=== PATIENT | female | born 1995 | race Caucasian/White ===

== ENCOUNTER 2022-01-26 15:53 | Outpatient (CLI) | payer OTHER, SELFPAY ==
[2022-01-26 19:44] LABS: Total Protein Urine < 5 mg/dL
[2022-01-26 19:47] LABS: Alanine Aminotransferase* 15 U/L (4-35); Aspartate Amino Transferase* 17 U/L (12-35); Blood Urea Nitrogen* 8 mg/dL (5-24); Creatinine* 0.4 mg/dL (0.5-1.5); Estimated Glomerular Filt Rate 142 ml/min; Uric Acid* 2.7 mg/dL (2.2-8.4)
[2022-01-26 19:59] LABS: Creatinine Urine 135.4 mg/dL
[2022-01-26 20:19] LABS: Hepatitis B Surface Antigen* Negative (Negative)
[2022-01-26 20:23] LABS: Ferritin* 3.5 ng/mL (6.24-137.0)
[2022-01-26 20:32] LABS: HIV 1/2/P24 Combo Screen* Negative (Negative)
[2022-01-26 20:36] LABS: Hepatitis C Virus Antibody* Negative (Negative)
[2022-01-26 21:29] LABS: Iron* 14 ug/dL (37-170)
[2022-01-26 21:29] LABS: Chlamydia DNA Amplified* NOT DETECTED (No Detected); GC DNA Amplified* NOT DETECTED (No Detected)
[2022-01-26 21:39] LABS: Percent Iron Saturation 3 % (20-50); Total Iron Binding Capacity 472 ug/dL (265-497)
[2022-01-29 02:59] LABS: Rapid Plasma Reagin (RPR) Non Reactive (Non Reactive)
[2022-01-29 05:59] LABS: Varicella-Zoster Virus Ab, IgG 48.4 IV
[2022-02-01 14:22] LABS: Rubella Antibody IgG 14.9 IU/mL
== END 2022-01-26 15:54 | disposition home or self-care (01) ==
PROVIDERS: Visit Provider Physician Assistant
DX: O30.031 Twin pregnancy, monochorionic/diamniotic, first trimester (principal); Z3A.01 Less than 8 weeks gestation of pregnancy
CPT/HCPCS: 76817; 82565; 82570; 82728; 83540; 83550; 84156; 84450; 84460; 84520; 84550; 86592; 86703; 86762; 86787; 86803; 86850; 86900; 86901; 87086; 87340; 87491; 87591

== ENCOUNTER 2022-06-22 08:29 | Outpatient (CLI) | payer OTHER, SELFPAY | END 2022-06-22 08:30 | disposition home or self-care (01) | PROVIDERS: Visit Provider Obstetrics & Gynecology | DX: O30.033 Twin pregnancy, monochorionic/diamniotic, third trimester (principal); O13.3 Gestational [pregnancy-induced] hypertension without significant proteinuria, third trimester; Z3A.28 28 weeks gestation of pregnancy | CPT/HCPCS: 82565; 82570; 84156; 84450; 84460; 84520; 86592 ==

== ENCOUNTER 2022-06-24 16:05 | Outpatient (CLI) | payer OTHER, SELFPAY | END 2022-06-24 16:06 | disposition home or self-care (01) | LOC: NFLDREF 06-29 09:02 | PROVIDERS: Visit Provider Obstetrics & Gynecology | DX: Z87.59 Personal history of other complications of pregnancy, childbirth and the puerperium (principal) | CPT/HCPCS: 82570; 84156 ==

== ENCOUNTER 2022-08-09 08:11 | Outpatient (CLI) | payer OTHER, SELFPAY ==
--- NOTE | 2022-08-09 08:15 | CRLHL7_ITS ---
For Patients: As a result of the Century Cures Act, medical imaging exams and procedure reports are released immediately into your electronic medical record. You may view this report before your referring provider. If you have questions, please contact your health care provider. INDICATION: MONO-DI TWINS, HYPERTENSION, BPP COMPARISON: 08.03.22 TECHNIQUE: Real time finnegan scale imaging of the twins was performed. Without non-stress testing. FINDINGS: Sonographic imaging demonstrates a twin living intrauterine gestation. TWIN A: Fetus demonstrates a regular cardiac rate of 139 beats per minute. Fetus has a yazan breech maternal left position. The amniotic fluid volume appears normal and there is a single deepest pocket measurement of 4.8 cm. The fetus was active and demonstrated normal breathing movements. There was normal flexion and extension of the trunk and extremities. TWIN B: Fetus demonstrates a regular cardiac rate of 129 beats per minute. Fetus has a transverse position, head maternal left. The amniotic fluid volume appears normal and there is a single deepest pocket measurement of 4.8 cm. The fetus was active and demonstrated normal breathing movements. There was normal flexion and extension of the trunk and extremities. IMPRESSION: Twin A: Normal biophysical profile score of 8 out of 8. Twin B: Normal biophysical profile score of 8 out of 8. Dictated by Ced Arevalo MD @ 08/09/2022 9:48:23 AM (Electronically Signed)
== END 2022-08-09 08:12 | disposition home or self-care (01) ==
PROVIDERS: Visit Provider Obstetrics & Gynecology
DX: O11.3 Pre-existing hypertension with pre-eclampsia, third trimester (principal); O30.033 Twin pregnancy, monochorionic/diamniotic, third trimester; Z3A.35 35 weeks gestation of pregnancy
CPT/HCPCS: 76819

== ENCOUNTER 2022-08-11 08:37 | Outpatient (CLI) | payer OTHER, SELFPAY ==
--- NOTE | 2022-08-11 08:45 | CRLHL7_ITS ---
For Patients: As a result of the Century Cures Act, medical imaging exams and procedure reports are released immediately into your electronic medical record. You may view this report before your referring provider. If you have questions, please contact your health care provider. INDICATION: MONO-DI TWINS, HYPERTENSION COMPARISON: 08/09/2022 TECHNIQUE: Real time finnegan scale imaging of the twin was performed. Without non-stress testing. FINDINGS: Sonographic imaging demonstrates a twin living intrauterine gestation. TWIN A: Fetus demonstrates a regular cardiac rate of 152 beats per minute. Fetus has a yazan breech left maternal position. The amniotic fluid volume appears normal and there is a single deepest pocket measurement of 3.3 cm. The fetus was active and demonstrated normal breathing movements. There was normal flexion and extension of the trunk and extremities. TWIN B: Fetus demonstrates a regular cardiac rate of 146 beats per minute. Fetus has a yazan breech, maternal right position. The amniotic fluid volume appears normal and there is a single deepest pocket measurement of 6.6 cm. The fetus was active and demonstrated normal breathing movements. There was normal flexion and extension of the trunk and extremities. IMPRESSION: TWIN A: Normal biophysical profile score of 8 out of 8. TWIN B: Normal biophysical profile score of 8 out of 8. Dictated by Ced Arevalo MD @ 08/11/2022 10:05:03 AM (Electronically Signed)
== END 2022-08-11 08:38 | disposition home or self-care (01) ==
PROVIDERS: Visit Provider Obstetrics & Gynecology
DX: O11.3 Pre-existing hypertension with pre-eclampsia, third trimester (principal); Z3A.35 35 weeks gestation of pregnancy
CPT/HCPCS: 76819; 82565; 84450; 84460; 84520; 84550

== ENCOUNTER 2022-08-17 08:02 | Outpatient (CLI) | payer OTHER, SELFPAY ==
--- NOTE | 2022-08-17 08:15 | CRLHL7_ITS ---
For Patients: As a result of the Century Cures Act, medical imaging exams and procedure reports are released immediately into your electronic medical record. You may view this report before your referring provider. If you have questions, please contact your health care provider. INDICATION: female. Hypertension. Monochorionic diamniotic twins. Evaluate well-being. TECHNIQUE: Transabdominal obstetrical ultrasound. COMPARISON : August 11, 2022. FINDINGS: Intrauterine living twin pregnancies. Twin A is in breech presentation. heart rate 142 beats per minute. Normal amniotic fluid. Single deepest pocket measurement 5.4 cm. Biophysical profile score 8/8 with 2 points given each for breathing, movement, tone, and amniotic fluid. Anterior placenta. Twin B is transversely oriented with the head toward the maternal left side. heart rate 147 beats per minute. Normal amniotic fluid. Single deepest pocket measurement 7.5 cm. Biophysical profile score 8/8 with 2 points given each for breathing, movement, tone, and amniotic fluid. Anterior placenta. IMPRESSION: Biophysical profile score 8/8 for each twin . Dictated by Tim Giron MD @ 08/17/2022 9:13:57 AM (Electronically Signed)
== END 2022-08-17 08:03 | disposition home or self-care (01) ==
PROVIDERS: Visit Provider Obstetrics & Gynecology
DX: O11.9 Pre-existing hypertension with pre-eclampsia, unspecified trimester (principal); O30.039 Twin pregnancy, monochorionic/diamniotic, unspecified trimester
CPT/HCPCS: 76819; 82565; 84450; 84460; 84520

== ENCOUNTER 2022-08-19 05:26 | Inpatient (IN) | payer OTHER, SELFPAY ==
[2022-08-19] VITALS (19 sets, daily range): BP systolic 108–138; BP diastolic 69–93; PULSE 59–93; RESP 14–18; TEMP 36.4–36.9; O2SAT 97–98; BMI 28.0
[2022-08-19 06:12] LABS: Basophils Absolute Auto 0.02 K/uL (0.00-0.30); Basophils Percent Auto 0.2 % (0.0-3.0); Eosinophils Absolute Auto 0.07 K/uL (0.00-0.50); Eosinophils Percent Auto 0.7 % (0.0-7.0); Hematocrit 39.8 % (33.0-51.0); Hemoglobin* 13.1 gm/dL (12.0-16.0); Immature Granulocytes Abs Auto 0.15 K/uL (0.00-0.30); Immature Granulocytes Pct Auto 1.6 %; Lymphocytes Percent Auto 17.2 % (20-44); Mean Corpuscular HGB Conc 33 gm/dL (32-36); Mean Corpuscular Hemoglobin 28 pg (26-34); Mean Corpuscular Volume 84 fL (80-100); Monocytes Percent Auto 8.5 % (0.0-11.0); Neutrophils Absolute Auto 6.78 K/uL (1.7-7.0); Neutrophils Percent Auto 71.8 % (42.0-72.0); Platelet Count* 234 K/uL (140-440); RDW Coefficient of Variation % 19.5 % (11.5-15.5); Red Blood Count 4.74 m/uL (4.00-5.20); White Blood Count* 9.44 K/uL (4.50-11.00)
[2022-08-19] MEDS: LACTATED RINGERS 1000 ML 1,000 ML 125 ML IV (06:13)
[2022-08-19 06:17] LABS: Slide Review Reflex No
--- NOTE | 2022-08-19 07:17 | P.LDBA_ITS ---
Subjective History of Present Illness Time Seen by Provider: 07:17 Date Seen: 08/19/22 Narrative: Patient is being admitted to Labor and Delivery for a scheduled primary low- transverse for mono/di twins, both not vertex, chronic hypertension with superimposed mild preeclampsia. She is a 27 year old at 36 weeks 5 days gestation. Her full history and physical was dictated by Dr. Sonya Galaviz on 08/03/2022. Please see this for details. 1. [place]/di twin gestation * Referral to [facility] to confirm chorionicity: mono/di gestation * Ultrasounds every 2 weeks starting at 16 weeks * Level 2 ultrasound at 18-20 weeks: 04/27/2022, normal, absent nasal bone x2 * echo at 22-24 weeks: normal * Serial growth ultrasounds * BPP twice weekly until delivery * 05/28/22: Normal growth. Normal amniotic fluid. Normal umbilical artery Dopplers. * 06/09/22: normal amniotic fluid for both. bladder is visualized for both. Umbilical artery Doppler studies are normal for both, middle cerebral artery Doppler normal for both * 06/25/22: Normal growth, normal fluid normal umbilical artery doppler, normal MCA doppler. BPPs reassuring. * 07/09/22: normal dopplers, normal fliud, bladders seen, BPPs reassuring * : Normal Dopplers, normal fluid, normal growth. BPP reassuring * 07/27/2022: Normal growth for both babies, Baby A breech, single deepest pocket of amniotic fluid 5.7 cm. Baby B vertex, single deepest pocket of amniotic fluid 7.3 cm. Normal umbilical artery Doppler flow studies for both twins, normal MCA Doppler for both twins. BPP is are reassuring. * 07/29/2022: Br/Br twins. Twin A: Mat L, BR, SDP 7.3cm, BPP 8/8. Twin B: mat R, BR, SDP 6.0cm, BPP 8/8. * 08/03/22: Twin A (maternal L): Sukhwinder breech, SDP 3.8, BPP 8/8. Twin B (maternal R): transverse, back up, SDP 7.7, BPP 8/8. * 08/17/22: Twin A: Breech, SDP 5.4 cm, BPP 8/8. Twin B: transverse, SDP 7.5 cm, BPP 8/8 2. Chronic hypertension with superimposed preeclampsia w/o severe features diagnosed at 28w1d. * History of preeclampsia with severe features by POLITICAL DIRECTOR symptoms, delivered at 35 weeks 5 days * Baseline pre E labs: Normal. Urine P/C: 0.00, no 24 hr urine protein. * 81 mg aspirin daily - stopped by 34 weeks. * Blood pressure in clinic 120/90 at 15 weeks. * 06/22/2022 preeclampsia labs: Hgb 10.0, plts 225, AST 27, ALT 20, BUN 5, Creat 0.4. Urine P/C 1.00, * 06/24/2022: 24hr urine protein 357mg. * 07/27/2022: Urine p/C 4.0. hgb 12.7, plts 217, BUN 3, Creat 0.4, AST 22, ALT 18. (Stop checking urine P/C: we know she has proteinuria c/w preeclampsia). * Delivery by 37 0/7weeks 3. Anemia (requred iron infusions in 1st ). * hgb 8.2 , iron 14L, ferrtin 3.5!: HGB:11.5 after iron infusions * IV iron infusions ordered, completed in the first trimester * NEEDS ANEMIA WORK UP PP, WOULD CONSIDER GI REFERRAL * Hematology referral ordered 02/25/22; patient plans to defer until * Anemia 06/22/22:IV iron infusions ordered again * Hb 12.7 on 08/02 4. Desires sterilization. Bilateral salpingectomy at time of 08/19/22. 5. Varicella nonimmune * Vaccination Flu shot: considering for next visit Covid: 1st shot, recommend 2nd Tdap:07/07/22 OB - Problem Based A/P Additional Plan (1) Chronic hypertension with superimposed preeclampsia: Status: Acute (2) S/P primary low transverse : Status: Acute (3) malpresentation, delivered, current hospitalization: Problem details: Twin A: Breech, Twin B: transverse. Status: Acute Plan 1. Consent form reviewed and signed by me today. Previously signed and reviewed by Dr. Sonya Galaviz. 2. Planning primary low-transverse delivery. 3. Preeclampsia labs (serum) continue to be normal. OB Exam Physical Exam Vital signs: Pulse BP 93 137/92 H 08/19/22 05:35 08/19/22 05:35 Narrative: GENERAL APPEARANCE: Pleasant, [race], well-groomed woman in no acute distress. VITAL SIGNS: as noted in nursing notes HEAD: Normocephalic, atraumatic. THYROID: no masses, nodularity, tenderness or enlargement. LUNGS: Clear to auscultation bilaterally without wheezes, rales or rhonchi. HEART: Regular rate and rhythm with normal S1 and S2. No gallop, rub or murmur. ABDOMEN: Gravid. Soft, nontender, nondistended, with normal bowels sounds throughout. HEART TONES: Both twins 130s and reactive PRESENTATION: Breech/transverse on ultrasound SVE: Deferred EXTREMITIES: No cyanosis, clubbing, or edema. No varicosities. NEUROLOGIC: Normal gait and balance. Normal deep tendon reflexes at bilateral patella 2+/2, equal without clonus. PSYCHIATRIC: alert and oriented x3. Normal speech pattern, eye contact and affect. SKIN: Warm, dry, and well perfused. Good turgor. No lesions, nodules or rashes.
--- NOTE | 2022-08-19 07:17 | W.PM.LDBA ---
Subjective History of Present Illness Time Seen by Provider: 07:17 Date Seen: 08/19/22 Narrative: Patient is being admitted to Labor and Delivery for a scheduled primary low-transverse for mono/di twins, both not vertex, chronic hypertension with superimposed mild preeclampsia. She is a 27 year old at 36 weeks 5 days gestation. Her full history and physical was dictated by Dr. Sonya Galaviz on 08/03/2022. Please see this for details. 1. [place]/di twin gestation Referral to [facility] to confirm chorionicity: mono/di gestation Ultrasounds every 2 weeks starting at 16 weeks Level 2 ultrasound at 18-20 weeks: 04/27/2022, normal, absent nasal bone x2 echo at 22-24 weeks: normal Serial growth ultrasounds BPP twice weekly until delivery 05/28/22: Normal growth. Normal amniotic fluid. Normal umbilical artery Dopplers. 06/09/22: normal amniotic fluid for both. bladder is visualized for both. Umbilical artery Doppler studies are normal for both, middle cerebral artery Doppler normal for both 06/25/22: Normal growth, normal fluid normal umbilical artery doppler, normal MCA doppler. BPPs reassuring. 07/09/22: normal dopplers, normal fliud, bladders seen, BPPs reassuring : Normal Dopplers, normal fluid, normal growth. BPP reassuring 07/27/2022: Normal growth for both babies, Baby A breech, single deepest pocket of amniotic fluid 5.7 cm. Baby B vertex, single deepest pocket of amniotic fluid 7.3 cm. Normal umbilical artery Doppler flow studies for both twins, normal MCA Doppler for both twins. BPP is are reassuring. 07/29/2022: Br/Br twins. Twin A: Mat L, BR, SDP 7.3cm, BPP 8/8. Twin B: mat R, BR, SDP 6.0cm, BPP 8/8. 08/03/22: Twin A (maternal L): Sukhwinder breech, SDP 3.8, BPP 8/8. Twin B (maternal R): transverse, back up, SDP 7.7, BPP 8/8. 08/17/22: Twin A: Breech, SDP 5.4 cm, BPP 8/8. Twin B: transverse, SDP 7.5 cm, BPP 8/8 2. Chronic hypertension with superimposed preeclampsia w/o severe features diagnosed at 28w1d. History of preeclampsia with severe features by ELECTRONICS MANUFACTURER symptoms, delivered at 35 weeks 5 days Baseline pre E labs: Normal. Urine P/C: 0.00, no 24 hr urine protein. 81 mg aspirin daily - stopped by 34 weeks. Blood pressure in clinic 120/90 at 15 weeks. 06/22/2022 preeclampsia labs: Hgb 10.0, plts 225, AST 27, ALT 20, BUN 5, Creat 0.4. Urine P/C 1.00, 06/24/2022: 24hr urine protein 357mg. 07/27/2022: Urine p/C 4.0. hgb 12.7, plts 217, BUN 3, Creat 0.4, AST 22, ALT 18. (Stop checking urine P/C: we know she has proteinuria c/w preeclampsia). Delivery by 37 0/7weeks 3. Anemia (requred iron infusions in 1st ). hgb 8.2 , iron 14L, ferrtin 3.5!: HGB:11.5 after iron infusions IV iron infusions ordered, completed in the first trimester NEEDS ANEMIA WORK UP PP, WOULD CONSIDER GI REFERRAL Hematology referral ordered 02/25/22; patient plans to defer until Anemia 06/22/22:IV iron infusions ordered again Hb 12.7 on 08/02 4. Desires sterilization. Bilateral salpingectomy at time of 08/19/22. 5. Varicella nonimmune Vaccination Flu shot: considering for next visit Covid: 1st shot, recommend 2nd Tdap:07/07/22 OB - Problem Based A/P Additional Plan (1) Chronic hypertension with superimposed preeclampsia: Status: Acute (2) S/P primary low transverse : Status: Acute (3) malpresentation, delivered, current hospitalization: Problem details: Twin A: Breech, Twin B: transverse. Status: Acute Plan 1. Consent form reviewed and signed by me today. Previously signed and reviewed by Dr. Sonya Galaviz. 2. Planning primary low-transverse delivery. 3. Preeclampsia labs (serum) continue to be normal. OB Exam Physical Exam Vital signs: Pulse BP 93 137/92 H 08/19/22 05:35 08/19/22 05:35 Narrative: GENERAL APPEARANCE: Pleasant, [race], well-groomed woman in no acute distress. VITAL SIGNS: as noted in nursing notes HEAD: Normocephalic, atraumatic. THYROID: no masses, nodularity, tenderness or enlargement. LUNGS: Clear to auscultation bilaterally without wheezes, rales or rhonchi. HEART: Regular rate and rhythm with normal S1 and S2. No gallop, rub or murmur. ABDOMEN: Gravid. Soft, nontender, nondistended, with normal bowels sounds throughout. HEART TONES: Both twins 130s and reactive PRESENTATION: Breech/transverse on ultrasound SVE: Deferred EXTREMITIES: No cyanosis, clubbing, or edema. No varicosities. NEUROLOGIC: Normal gait and balance. Normal deep tendon reflexes at bilateral patella 2+/2, equal without clonus. PSYCHIATRIC: alert and oriented x3. Normal speech pattern, eye contact and affect. SKIN: Warm, dry, and well perfused. Good turgor. No lesions, nodules or rashes.
--- NOTE | 2022-08-19 07:23 | P.PCN_ITS ---
Procedure Note Time Seen by Provider: : Date Seen: 08/19/22 Date of procedure: 08/19/22 Will [facility] bill your pro fee for this procedure?: Yes Procedure: Preoperative diagnosis: Diana is a 27-year-old 2 para 1001 at 36 and 5/7 weeks * Monochorionic/diamniotic twins * Chronic hypertension with superimposed preeclampsia without severe features * Malpresentation of twins: Twin a breech/twin B transverse * Undesired fertility Postoperative diagnosis: Same Procedure: Primary low-transverse section, bilateral salpingectomy Anesthesia: Spinal Surgeon: Ceci Araiza MD Marketing Account Manager: BECKY Nogueira Quantitative blood loss: 504 mL IV Fluid: 2000 mL UOP: 400 mL clear urine at the end of the procedure Specimen: 1. Placenta. 2. Bilateral fallopian tubes Drain(s): Urban to gravity Findings: Twin A: Female infant was delivered from the yazan breech position at 8:02 am. Apgars were 7 at 1 min and 9 at 5 min respectively. weight: 5 lb 12 oz., 2610 g Nuchal cord(s): No. Twin B: Female infant was delivered from the footling breech position at 8:04 am. Apgars were 7 at 1 min and 9 at 5 min., respectively. Infant weight: 5 lb 12 oz. 2610 g Nuchal cord(s): No. The placenta was delivered spontaneously and complete at 8:06 am. Amniotic fluid: Clear.. Normal uterus, fallopian tubes and ovaries were noted. Other findings: None Procedure: Diana was taken to the OR where spinal anesthetic was found be adequate. A Urban catheter was placed. The patient was then placed in the dorsal supine position with a leftward tilt. She was then prepped and draped in a normal sterile manner. A Pfannenstiel skin incision was made and carried through sharply to the underlying layer of fascia. Fascia was incised in the midline and this incision carried laterally with Romero scissors. The superior aspect of fascial incision was grasped with Charissa clamps, tented up, and the rectus muscles dissected off with a combination of blunt and sharp dissection. The inferior aspect of the fascial incision was not dissected off the rectus muscles. The rectus muscles were in the midline. The peritoneum was entered bluntly. This opening was extended bluntly. An Ming-O self-retaining retractor was placed. A bladder flap was not created. Uterus was incised in a low transverse manner in the midline. This incision carried laterally with blunt pressure on the inferior and superior aspects of the uterine incision. The amniotic sac was ruptured. The amniotic sac of Twin B was ruptured and the 's breech, body and head were delivered atraumatically. The infant was shown to the patient and her support person and then handed to waiting pediatric and nursing staff. The position of Twin B was noted, the amniotic sac was ruptured and the infant's feet were grasped and the was delivered from footling breech presentation.. The infant was shown to the support person and the patient and handed to waiting pediatric and nursing staff. The placenta was delivered spontaneously. The uterus was cleared of clots and debris. The uterine incision was re-approximated with the uterus in vivo. The 1st layer using 0-Vicryl in a running, locked manner. The 2nd layer using 0-Monocryl in a running, vertical, imbricating layer. Additional sutures needed for hemostasis: No. Excellent hemostasis was verified. Attention was turned to performing the bilateral salpingectomy. The patient verbally confirmed that she desired bilateral salpingectomy for undesired fertility. The LigaSure exact dissecting forceps was used to remove the fallopian tubes. The uterus was exteriorized. The left fallopian tube was grasped with 2 Troy clamps. The tube was removed in sequential pedicles starting at the cornual moving toward the fimbria. The tube was removed from the broad ligament at the fimbriated and. The mesosalpinx was noted to be hemostatic. The right fallopian tube was grasped with Troy clamps and the tube removed in sequential pedicle starting at the fimbriated end and the tube removed from the broad ligament and uterus at the cornua. Hemostasis of the pedicles was obtained using bipolar cautery. The uterus was returned to the pelvis. The uterine incision which was noted to be hemostatic after applying bipolar cautery. The Ming retractor was removed. The rectus muscles and peritoneum were not reapproximated. The rectus muscles were then closely inspected to verify hemostasis. Hemostasis was obtained with bipolar cautery. The fascia was then re-approximated using 0-Maxon loop in a running manner. The subcutaneous tissue was then irrigated with saline and hemostasis obtained with bipolar cautery. The subcutaneous tissue was re- approximated using 3-0 plain gut interrupted sutures. The skin was reapproximated using 4-0 Monocryl in a running subcuticular manner. Exofin skin adhesive and a Methaplex dressing were applied. The patient tolerated this procedure well. Sponge, lap and instrument counts were correct x2 active to the procedure. Patient was taken to the recovery area in stable condition. The patient received 2 g of IV Ancef prior to skin incision. 1 g IV TXA was given to the patient after the cord of Twin B was clamped. Pathology: specimen obtained, sent to pathology Condition: stable Disposition: floor
--- NOTE | 2022-08-19 08:13 | W.ANESCHARGE ---
Anesthesia Charges Start Date/Time Anesthesia Start Date: 08/19/22 Anesthesia Start Time: 07:19 Stop Date/Time Anesthesia Stop Date: 08/19/22 Anesthesia Stop Time: 08:56
--- NOTE | 2022-08-19 08:57 | P.NB_ITS ---
Nerve Block Nerve Block Time Seen by Provider: 07:45 Date Seen: 08/19/22 Type of block requested by surgeon for post-operative analgesia: TAP Side: bilateral Time out performed: Yes Verification of patient name: Yes Verification of date of : Yes Site marking: site marked Name of person performing procedure: Yadiel Continuous monitoring Was continuous monitoring of O2 sat, B/P, environmental monitoring specialist, recorded every 15 minutes?: Yes Procedure Checklist: sterile prep, needles and gloves Ultrasound guided. Images saved: Yes Medications given in 5ml increments after negative aspiration: Marcaine %: 0.25 mL: 30 Needle gauge: 20 and Exparel mL: 10 Patient tolerated procedure well: Yes Additional comments: Needle noted adjacent to nerve Block Charges Block Charge (with Pro Fee): TAP Bilateral Use of Ultrasound Machine for Block: Yes- US Guidance/pain block
--- NOTE | 2022-08-19 09:14 | W.ANESCHARGE ---
Anesthesia Charges Start Date/Time Anesthesia Start Date: 08/19/22 Anesthesia Start Time: 07:19 Stop Date/Time Anesthesia Stop Date: 08/19/22 Anesthesia Stop Time: 08:56
[2022-08-19 10:00] LABS: Blood Urea Nitrogen* 6 mg/dL (5-24)
[2022-08-19] MEDS: ACETAMINOPHEN 500 MG TABLET 1000 MG PO ×3 (11:00→23:49)
[2022-08-19] MEDS: KETOROLAC 30 MG/ML inj IVP ×2 (14:16→20:13)
[2022-08-20] MEDS: KETOROLAC 30 MG/ML inj IVP ×3 (02:40→14:54)
[2022-08-20 04:07] VITALS: BP 120/79; PULSE 77; RESP 16; TEMP 36.7; O2SAT 97
[2022-08-20 05:29] LABS: Hematocrit 33.3 % (33.0-51.0); Hemoglobin* 10.7 gm/dL (12.0-16.0); Mean Corpuscular HGB Conc 32 gm/dL (32-36); Mean Corpuscular Hemoglobin 28 pg (26-34); Mean Corpuscular Volume 86 fL (80-100); Platelet Count* 187 K/uL (140-440); Red Blood Count 3.87 m/uL (4.00-5.20); White Blood Count* 10.02 K/uL (4.50-11.00)
[2022-08-20 05:40] LABS: Slide Review Reflex No
[2022-08-20 05:44] LABS: Alanine Aminotransferase* 18 U/L (4-35); Aspartate Amino Transferase* 26 U/L (12-35); Creatinine* 0.6 mg/dL (0.5-1.5); Est. Creatinine Clearance* 134.18; Estimated Glomerular Filt Rate 128 ml/min
[2022-08-20] MEDS: ACETAMINOPHEN 500 MG TABLET 1000 MG PO ×3 (06:18→18:33)
[2022-08-20 08:18] VITALS: BP 129/81; PULSE 82; RESP 16; TEMP 36.7; O2SAT 97
[2022-08-20] MEDS: FERROUS SULFATE 325 MG TABLET PO (08:33)
[2022-08-20] MEDS: DOCUSATE SODIUM 100 MG CAPSULE PO (08:33)
--- NOTE | 2022-08-20 08:35 | P.OBPN_ITS ---
OB - PN:Subj Subjective Date Seen: 08/20/22 Narrative: Diana is a 27 y.o. who was admitted to [facility] for primary low- transverse for mono/di twins, both not vertex, and chronic hypertension with superimposed mild preeclampsia. ?She had an uncomplicated C- section.?The patient feels well. ?The pain is well controlled with current medications. Her blood pressure has been well controlled . ?She has no new complaints. ?She is breast feeding and reports things are going ok. She has mainly been hand expressing but plans to work on feeding at the breast.? the patient has done well.? Vitals have been stable.? She has remained afebrile.? Has a good appetite, is tolerating a general diet. ?She is voiding without difficulty.? She is passing gas and has not had a bowel movement.? She is ambulating and denies any dizziness.? Has Small amount of rubra lochia. ?She had a bilateral tubal ligation for prevention. OB - PN: Obj Exam Physical Exam: Vital signs: Temp Pulse Resp BP Pulse Ox O2 Del Method 98.1 F 82 16 129/81 97 Room Air 08/20/22 08:18 08/20/22 08:18 08/20/22 08:18 08/20/22 08:18 08/20/22 08:18 08/20/22 08:18 Narrative: GENERAL APPEARANCE:? normal affect, alert, no distress MOOD:? appropriate CHEST:? clear to auscultation HEART:? regular rate and rhythm ABDOMEN:? soft, non-tender the uterine fundus is at Umbilicus, Midline and is appropriate for the stage of recovery. PERINEUM:? mild edema of the perineum, there is a Perineal Laceration,?that is healing well. EXTREMITIES:? normal and no edema INCISION: Healing well, Dressing removed, no surrounding erythema, abnormal induration or discharge Urinary Catheter Management: Urethral: Cath placed during this visit: yes Urethral indwelling: No Insertion date: 08/19/22 Insertion time: 07:35 OB - PN: Obj Data Labs Labs: Laboratory Results - last 24 hr 08/19/22 08/20/22 06:05 05:20 WBC 10.02 RBC 3.87 L Hgb 10.7 L Hct 33.3 MCV 86 MCH 28 MCHC 32 Plt Count 187 BUN 6 Creatinine 0.6 Estimated Creat Clear 134.18 Estimated GFR 128 AST 26 ALT 18 Antibody Screen NEGATIVE OB - PN: A/P Vaginal Delivery Assessment and Plan (1) care and examination immediately after delivery: Status: Acute (2) Chronic hypertension with superimposed preeclampsia: Status: Acute (3) S/P primary low transverse : Problem details: Twin A: 8:02Am, Apgars 7/9, weight 5#12oz. Sukhwinder Breech. Kassandra Villalta. Twin B: 8:04, Apgars 7/9, weight 5#12oz. Tranverse back up infant's head on maternal L delivered footling breech. Juani Wellington Status: Acute (4) Lactating mother: Status: Acute Plan day: 1 Plan: routine care Comments: Routine post-op care. Lactating mother. May see if desired. Recommended due to twins and prematurity. Chronic HTN w/ superimposed without SF. Continue to monitor blood pressures. Anticipate discharge on Tuesday, 08/22.
[2022-08-20 17:07] VITALS: BP 124/77; PULSE 75; RESP 16; TEMP 36.7; O2SAT 95
[2022-08-20 20:41] VITALS: BP 127/82; PULSE 73; RESP 18; TEMP 36.8; O2SAT 96
[2022-08-20] MEDS: IBUPROFEN 600 MG TABLET PO (20:44)
[2022-08-20 23:57] VITALS: BP 121/78; PULSE 71; RESP 16; TEMP 36.8; O2SAT 98
[2022-08-21 04:31] VITALS: BP 132/80; PULSE 80; RESP 16; TEMP 36.6
[2022-08-21] MEDS: DOCUSATE SODIUM 100 MG CAPSULE PO (08:35)
[2022-08-21] MEDS: IBUPROFEN 600 MG TABLET PO ×3 (08:35→21:34)
[2022-08-21] MEDS: FERROUS SULFATE 325 MG TABLET PO (08:35)
[2022-08-21] MEDS: OXYCODONE 5 MG TABLET PO (08:35)
[2022-08-21 08:39] VITALS: BP 127/86; PULSE 89; RESP 16; TEMP 36.9; O2SAT 96
[2022-08-21] MEDS: ACETAMINOPHEN 500 MG TABLET 1000 MG PO ×3 (11:51→18:27)
--- NOTE | 2022-08-21 12:20 | PM.OBPNVD1 ---
OB - PN:Subj Subjective Date Seen: 08/21/22 Interval history: Diana is a 27-year-old G2 now P 1-1-0-3 woman who is status post primary low-transverse with bilateral salpingectomy for indication of male presentation in a mono / di twin at 36 weeks, 5 days gestation on 08/19/2022. Ob problem list: 1. Isabela/di twin gestation 2. Chronic hypertension with superimposed preeclampsia w/o severe features diagnosed at 28w1d. History of preeclampsia with severe features by WAREHOUSE SHIFT SUPERVISOR symptoms, delivered at 35 weeks 5 days Baseline pre E labs: Normal. Urine P/C: 0.00, no 24 hr urine protein. 3. Anemia (requred iron infusions in 1st ). hgb 8.2 , iron 14L, ferrtin 3.5!: HGB:11.5 after iron infusions IV iron infusions ordered, completed in the first trimester NEEDS ANEMIA WORK UP PP, WOULD CONSIDER GI REFERRAL Hematology referral ordered 02/25/22; patient plans to defer until Anemia 06/22/22:IV iron infusions ordered again Hb 12.7 on 08/02 4. Desires sterilization. Bilateral salpingectomy at time of 08/19/22. 5. Varicella nonimmune Vaccination Narrative: She has no complaints today. Pain is well managed, and more noticeable along the right side of the incision. She denies any heavy bleeding. She is ambulating and urinating without difficulty. Tolerating regular diet and passing flatus. Her daughters are doing pretty well. She did not breastfeed her 1st child, but is working on pumping and bottle feeding expressed breast milk this time. That is going well. OB - PN: Obj Exam Physical Exam: Vital signs: Temp Pulse Resp BP Pulse Ox O2 Del Method 98.4 F 89 16 127/86 96 Room Air 08/21/22 08:39 08/21/22 08:39 08/21/22 08:39 08/21/22 08:39 08/21/22 08:39 08/21/22 08:39 Narrative: General: Pleasant, no acute distress Heart: Regular rate and rhythm, no murmur or gallop Lungs: Clear to auscultation bilaterally Abdomen: Soft, nontender, fundus well below umbilicus, normoactive bowel sounds, incision clean, dry, and intact Lower extremities: No edema or erythema Urinary Catheter Management: Urethral: Cath placed during this visit: yes Urethral indwelling: No Insertion date: 08/19/22 Insertion time: 07:35 OB - PN: Obj Data Labs Labs: Hemoglobin 10.7 yesterday morning OB - PN: A/P Delivery Assessment and Plan (1) care and examination immediately after delivery: Status: Acute (2) Chronic hypertension with superimposed preeclampsia: Status: Acute Assessment and Plan: Normotensive in the last 24 hours. She is on no medications. Continue to observe. (3) S/P primary low transverse : Problem details: Twin A: 8:02Am, Apgars 7/9, weight 5#12oz. Sukhwinder Breech. Kassandra Ambar. Twin B: 8:04, Apgars 7/9, weight 5#12oz. Tranverse back up 's head on maternal L delivered footling breech. Juani Wellington Status: Acute Assessment and Plan: Appropriate course. Anticipate discharge tomorrow. (4) Lactating mother: Status: Acute (5) Anemia: Status: Acute Assessment and Plan: She did have anemia requiring IV iron infusion during . At this point, I recommended every other day iron dosing. Will repeat hemoglobin at 6 weeks . Plan day: 2
[2022-08-21 16:46] VITALS: BP 129/89; PULSE 73; RESP 16; TEMP 36.9; O2SAT 99
[2022-08-22] MEDS: ACETAMINOPHEN 500 MG TABLET 1000 MG PO ×2 (00:34→11:25)
[2022-08-22 01:12] VITALS: BP 126/86; PULSE 72; RESP 16; TEMP 36.4; O2SAT 97
[2022-08-22] MEDS: IBUPROFEN 600 MG TABLET PO ×2 (08:23→15:27)
[2022-08-22] MEDS: OXYCODONE 5 MG TABLET PO ×2 (08:23→15:28)
[2022-08-22] MEDS: DOCUSATE SODIUM 100 MG CAPSULE PO (08:24)
[2022-08-22 08:25] VITALS: BP 124/87; PULSE 76; RESP 16; TEMP 36.4; O2SAT 98
--- NOTE | 2022-08-22 10:36 | PM.OBDSVD1 ---
DS: Providers Provider Time Seen by Provider: 10:37 Date Seen: 08/22/22 Date of admission: 08/19/22 05:26 Primary care physician: Not a Local Provider Admitting Clinician: Ceci Araiza MD Attending Physician on discharge: Ceci Araiza MD DS: Diagnosis Discharge Diagnosis (1) Lactating mother: Status: Acute (2) care and examination immediately after delivery: Status: Acute (3) S/P primary low transverse : Status: Acute Problem details: Twin A: 8:02Am, Apgars 7/9, weight 5#12oz. Sukhwinder Breech. Kassandra Ambar. Twin B: 8:04, Apgars 7/9, weight 5#12oz. Tranverse back up 's head on maternal L delivered footling breech. Juani Wellington (4) Chronic hypertension with superimposed preeclampsia: Status: Acute Problem details: Chronic hypertension with superimposed preeclampsia w/o severe features diagnosed at 28w1d. History of preeclampsia with severe features by GENERAL PRODUCTION LABORER symptoms, delivered at 35 weeks 5 days Baseline pre E labs: Normal. Urine P/C: 0.00, no 24 hr urine protein. BP during hospitalization has been within normal limits Plan: BP check at 1 week (5) Anemia: Status: Acute Problem details: Anemia (required iron infusions in 1st ). hgb 8.2 , iron 14L, ferrtin 3.5!: HGB:11.5 after iron infusions IV iron infusions ordered, completed in the first trimester NEEDS ANEMIA WORK UP PP, WOULD CONSIDER GI REFERRAL Hematology referral ordered 02/25/22; Patient plans to defer until Anemia 06/22/22:IV iron infusions ordered again Hb 12.7 on 08/02 Hb 10.7 on 08/22 at time of discharge Exam Narrative: Exam Narrative: Physical exam: General: No acute distress Psych: Alert and oriented x3, full affect HEENT: Normocephalic, atraumatic Neck: No cervical adenopathy, no thyromegaly Heart: Regular rate and rhythm, no murmur rub or gallop Lungs: Clear to auscultation bilaterally Abdomen: Normoactive bowel sounds, soft, no tenderness, rebound, or guarding, no masses. Fundus firm and 3 cm below umbilicus Incision: clean, dry and intact. Appropriately tender to palpation, worse on right side. No induration or spreading erythema. Back: Spinal puncture site noted. No bleeding, erythema or induration. Minimal pain on palpation. Negative CVAT bilaterally. Skin: No lesions or rashes Lower extremities: No edema or erythema Pelvic exam: Scant lochia on pad Const: Vital Signs, click to edit/add: Vital Signs - 24 hr 08/21/22 16:46 08/22/22 01:12 08/22/22 08:25 Temperature 98.4 F 97.5 F L 97.6 F Pulse Rate [Pulse Oximeter] 73 72 76 Respiratory Rate 16 16 16 Blood Pressure [Ri ght Arm] 129/89 126/86 124/87 Pulse Oximetry 99 97 98 Oxygen Delivery Me thod Room Air Room Air Room Air OB - DS: Summary Hospital Course Hospital Course: Diana is a 27 year old G2 P 1999 at 36.5 weeks gestation that was admitted to the Center on 08/19/22 for scheduled section mono-di twins in malpresentations. She had an uncomplicated delivery. She delivered two viable female infants. Overnight patient had some back pain near her spinal site that she describes as muscle soreness. Her pain is well controlled on oral pain medications. She is tolerating a regular diet. She has passed flatus. She is ambulating without difficulty. Lochia is scant. She is urinating without barr. Patient denies chest pain, SOB, n/v, headache, RUQ pain, vision changes, dizziness. Patient is anxious about Twin A failing car seat test x 2. Baby might need to be transfer for further workup. However, I discussed with her that she is stable and appropriate for discharge on POD#3 today. Thus, she can go with baby if transfer is necessary. Peripartum Data delivery method: Primary C/S; Non-Labored Laceration description: None Procedures: Procedures Operation Date: 08/19/22 07:15 Actual Procedure Side Surgeon p Section Twins, Bilateral Salpingectomy Ceci Araiza MD Procedures: tubal ligation/salpingectomy [place] Infant Gender: Female Infant A Gender: Female Time Spent with Patient Time attestation: Total time spent providing and/or coordinating discharge services: Time spent: Less than 30 minutes Discharge Plan Discharge Disposition: Home, Self-Care Date of Admission: 08/19/22 05:26 Attending Provider on Discharge: Zuly Weldon MD Primary Care Provider: Provider,Not a Local Condition: Stable Anticipated Discharge Date/Time: 08/22/22 09:18 Discharge Medications: New acetaminophen 500 mg Tablet 1,000 mg PO Q6H PRN (Reason: Pain) 30 Days Qty: 60 0RF docusate sodium 100 mg Capsule 100 mg PO BID 30 Days Qty: 60 0RF ibuprofen 600 mg Tablet 600 mg PO Q6H PRN (Reason: Pain) 30 Days Qty: 60 0RF simethicone 80 mg Tablet,Chewable 80 - 160 mg PO Q4H PRN (Reason: Gas) 30 Days Qty: 60 0RF oxycodone 5 mg Tablet 5 mg PO Q6H PRN (Reason: Pain) 30 Days Qty: 20 0RF Lanolin (HPA) 100 % Cream 1 applic topical Q1H PRN30 Days Qty: 21 0RF Continued prenat.vits,edin,dgk-helw-gurzt Tablet 1 tab PO QDAY ferrous sulfate [Feosol] 325 mg (65 mg iron) tablet 325 mg PO QDAY Discharge Orders: Discharge Order (Routine); Ordered 08/22/22 Ordered By: Zuly Weldon Patient Education: (DC) Activity Level: No strenuous activity Activity Detail: Pelvic rest for 6 weeks Follow Up Appointments: Provider,Not a Local [Primary Care Provider] - Forms: MyHealth Info Instructions Discharge Comments: Discharge instructions were reviewed with the patient including signs and symptoms of infection and home going medications. Lifting Restrictions: 20 pounds for [address] while taking narcotic pain medication. 1-2 weeks No high impact or core exercises for 6 weeks. Nothing vaginally for 6 weeks: No tampons or intercourse. Off Work or School for 8 weeks. Symptoms to report to doctor: -Bleeding that saturates more than one pad per hour ?-Passing clots larger than the size of a golf ball ?-Pain not relieved by prescribed medication ?-Fever above 100.4 degrees Fahrenheit ?-A foul vaginal odor ?-Difficulty in emotions, mood and functions ?-Thoughts of hurting yourself and/or ?-Painful, reddened area in your breast ?-Any drainage, redness or tenderness in your IV/epidural site ?-Severe headache that doesn't improve after taking medications ?-Changes in vision, including temporary loss of vision, blurred vision, and/or light sensitivity ?-Upper abdominal pain (usually under ribs on the right side) ?-Decrease in urination or painful, frequent urinating ?-Chest pain ?-Shortness of breath ?-Tenderness or pain with redness and/swelling in the calf(s) of your leg Follow Up with a [facility] provider: - 1 week blood pressure check - Optional 2 week : discuss infant feeding, control options and screen for anxiety/depression. - 6 week visit for physical exam consultation services are available to all mothers and babies for the first year after delivery.? To make an appointment, please call [phone].
== END 2022-08-22 17:51 | disposition home or self-care (01) | DRG 784 ==
PROVIDERS: Admitting Provider Obstetrics & Gynecology; Visit Provider Obstetrics & Gynecology
PROC: 10D00Z1 Extraction of Products of Conception, Low, Open Approach (ICD-10-PCS; CPT 59514; principal; 2022-08-19 07:15)
DX: O30.033 Twin pregnancy, monochorionic/diamniotic, third trimester (principal); O10.92 Unspecified pre-existing hypertension complicating childbirth; O11.4 Pre-existing hypertension with pre-eclampsia, complicating childbirth; O32.1XX1 Maternal care for breech presentation, fetus 1; O32.2XX2 Maternal care for transverse and oblique lie, fetus 2; O99.02 Anemia complicating childbirth; D64.9 Anemia, unspecified; Z3A.36 36 weeks gestation of pregnancy; Z37.2 Twins, both liveborn; G89.18 Other acute postprocedural pain
CPT/HCPCS: 01961; 36415; 64488; 76942; 82565; 84450; 84460; 84520; 85025; 85027; 86850; 86900; 86901; 88302; 88307; 99211; A9270; C9290; J0171; J1885; J2274; J2370; J2405; J2590; J3010; J3490; J7120

== ENCOUNTER 2022-10-01 09:40 | Outpatient (CLI) | payer OTHER, SELFPAY | END 2022-10-01 09:41 | disposition home or self-care (01) | PROVIDERS: Visit Provider Physician Assistant | DX: Z39.2 Encounter for routine postpartum follow-up (principal) | CPT/HCPCS: 82728; 83540; 83550 ==

== ENCOUNTER 2023-06-10 11:45 | Outpatient (CLI) | payer BC, SELFPAY ==
--- OUTSIDE RECORDS SUMMARY | 2023-06-10 11:49 | XMS_ITS | Clinical Summary ---
Author Name Unknown Organization [facility] Address [address] [place] [id number] Care Team Providers Care Continuous Loft Operator Name Role Phone Clinic, [facility] Primary Care Provide r Pily Spring MD Unavailable Allergies Active Allergy Reactions Criticality Noted Date Comments Penicillin G 03/22/2014 Medications Medication Sig Dispensed Refills Start Date End Date Status norethindrone-ethin yl estradiol (MICROGESTIN FE 03/19) 1-20 MG-MCG per tablet Take 1 tablet by mouth daily Active oxyCODONE (ROXICODONE) 5 MG immediate release tabletIndications:A cute appendicitis Take 1-2 tablets (5-10 mg) by mouth every 3 hours as needed for pain or other (Moderate to Severe) 30 tablet 0 03/23/2014 Active ferrous sulfate 325 (65 FE) MG tabletIndications:I donell deficiency anemia, unspecified Take 2 tablets (650 mg) by mouth 2 times daily With orange juice 60 tablet 2 03/23/2014 Active Lactobacillus Rhamnosus, GG, ([employer] PROBIOTIC, LACTOBACILLUS,) CAPSIndications:Iro n deficiency anemia, unspecified Take 1 capsule by mouth 2 times daily 03/23/2014 Active docusate sodium 100 MG tabletIndications:I donell deficiency anemia, unspecified Take 100 mg by mouth daily Or BID for constipation prevention 60 tablet 1 03/23/2014 Active Active Problems Problem Noted Date Diagnosed Date Torsion of paraovarian cyst 03/23/2014 Social History Tobacco Use Types Packs/Day Years Used Date Smoking Tobacco: Never Passive Smoke Exposure: Never Smokeless Tobacco: Never Tobacco Cessation:Counseling Given: Not Answered Alcohol Use Standard Drinks/Week Comments Never 0 (1 standard drink = 0.6 oz pur e alcohol) Adolescent Education Answer Date Record ed Getting School Help Needed Not on file 11/19 Sex and Gender Information Value Date Recorded Sex Assigned at Not on file Gender Identity Not on file Sexual Orientation Not on file Last Filed Vital Signs Vital Sign Reading Time Taken Comments Blood Pressure 117/71 05/21/2022 9:39 AM CDT Pulse 86 05/21/2022 9:39 AM CDT Temperature 37.2 ??C (99 ??F) 05/21/2022 9:39 AM CDT Respiratory Rate 18 05/21/2022 9:39 AM CDT Oxygen Saturation 99% 03/23/2014 5:00 AM PILOT SUBMERSIBLE Inhaled Oxygen Concentration - - Weight 52.2 kg (115 lb) 03/22/2014 8:52 PM PILOT SUBMERSIBLE Height 165.1 cm (5' 5) 03/22/2014 8:52 PM PILOT SUBMERSIBLE Body Mass Index 19.14 03/22/2014 8:52 PM PILOT SUBMERSIBLE Plan of Treatment Health Maintenance Due Date Last Done Comments ADVANCE CARE PLANNING 1997 ANNUAL REVIEW OF HM ORDERS 1997 YEARLY PREVENTIVE VISIT 1997 HEPATITIS B IMMUNIZATION (2 of 3 - 3-dose series) 1997 1997 HPV IMMUNIZATION (2 - 2-dose series) 04/16/2010 10/14/2009 HIV SCREENING 02/09/2012 HEPATITIS C SCREENING 2015 PAP 2018 COVID-19 Vaccine ( season) 2022 04/30/2020 INFLUENZA VACCINE (#1) 2022 PHQ-2 (once per calendar year) 2023 DTAP/TDAP/TD IMMUNIZATION (4 - Td or Tdap) 07/07/2032 07/07/2022, 07/31/2019, 10/14/2009 CHLAMYDIA SCREENING Discontinued 05/21/2022 IPV IMMUNIZATION Aged Out No longer e ligible based on patient's age to complete this topic MENINGITIS IMMUNIZATION Aged Out No l onger eligible based on patient's age to complete this topic Pneumococcal Vaccine: Pediatrics (0 to 5 Years) and At-Risk Patients (6 to 64 Years) Aged Out No longer eligible b ased on patient's age to complete this topic RSV MONOCLONAL ANTIBODY Aged Out No l onger eligible based on patient's age to complete this topic Procedures Procedure Name Priority Date/Time Associated Diagnosis Comments CHLAMYDIA TRACHOMATIS/NEISSERI A GONORRHOEAE BY PCR Routine 05/21/2022 10:11 AM CDT from Last 3 Months or Most Recently Relevant to Health Maintenance Results * Chlamydia trachomatis/Neisseria gonorrhoeae by PCR (05/21/2022 10:11 AM CDT) Chlamydia Trachomatis Negative Negative 05/21/2022 5:29 PM CDT [facility] Comment: Negative for C. trachomatis rRNA by passenger car upholsterer apprentice mediated amplification. A negative result by passenger car upholsterer apprentice mediated amplification does not preclude the presence of infection because results are dependent on proper and adequate collection, absence of inhibitors and sufficient rRNA to be detected. Neisseria gonorrhoeae Negative Negative 05/21/2022 5:29 PM CDT [facility] Comment:Negative for N. gono rrhoeae rRNA by passenger car upholsterer apprentice mediated amplification. A negative result by passenger car upholsterer apprentice mediated amplification does not preclude the presence of C. trachomatis infection because results are dependent on proper and adequate collection, absence of inhibitors and sufficient rRNA to be detected. Swab CERVIX UTERI STRUCTURE / Unknown Non-blood Collection / Unknown 05/21/2022 10:11 AM CDT 05/21/2022 10:23 AM CDT Jethro Xavier MD LAB - MICRO GENERAL ORDERABLES [facility] Inf. Diseases Diag. Lab [address] [facility] [place] [address] [phone] from Last 3 Months or Most Recently Relevant to Health Maintenance Advance Directives For more information, please contact: [phone] * Full Code (Latest Code Status on File) Date Activated Date Inactivated Comments 03/23/2014 1:53 AM 03/23/2014 4:36 PM Care Teams Continuous Loft Operator Relationship Specialty Start Date End Date [facility], [facility] [address] [place] [address] PCP - General 03/22/14 Pily Spring MD [address] [place] [address] Assigned OBGYN Provider 12/25/22
--- OUTSIDE RECORDS SUMMARY | 2023-06-10 11:49 | XMS_ITS | Referral Summary ---
Author Name Unknown Organization [facility] Address [address] [place] [address] Care Team Providers Care Mold Making Plastics Sheets Supervisor Name Role Phone [facility], [facility] Primary Care Provide r Pily Spring MD [...] CDT Oxygen Saturation 99% 03/23/2014 5:00 AM SIX PACK LOADER OPERATOR Inhaled Oxygen Concentration - - Weight 52.2 kg (115 lb) 03/22/2014 8:52 PM SIX PACK LOADER OPERATOR Height 165.1 cm (5' 5) 03/22/2014 8:52 PM SIX PACK LOADER OPERATOR Body Mass Index 19.14 03/22/2014 8:52 PM SIX PACK LOADER OPERATOR Plan of Treatment Not on file Procedures Procedure Name Priority Date/Time Associated Diagnosis Comments CHLAMYDIA TRACHOMATIS/NEISSERI A GONORRHOEAE BY PCR Routine 05/21/2022 10:11 AM CDT from Last 3 Months or Most Recently Relevant to Health Maintenance Results * Chlamydia trachomatis/Neisseria gonorrhoeae by PCR (05/21/2022 10:11 AM CDT) Pathologist [facility] Chlamydia Trachomatis Negative Negative 05/21/2022 5:29 PM CDT [facility] Comment: Negative for C. trachomatis rRNA by woodworker helper mediated amplification. A negative result by woodworker helper mediated amplification does not preclude the presence of infection because results are dependent on proper and adequate collection, absence of inhibitors and sufficient rRNA to be detected. Neisseria gonorrhoeae Negative Negative 05/21/2022 5:29 PM CDT [facility] Comment:Negative for N. gono rrhoeae rRNA by woodworker helper mediated amplification. A negative result by woodworker helper mediated amplification does not preclude the presence of C. trachomatis infection because results are dependent on proper and adequate collection, absence of inhibitors and sufficient rRNA to be detected. Swab CERVIX UTERI STRUCTURE / Unknown Non-blood Collection / Unknown 05/21/2022 10:11 AM CDT 05/21/2022 10:23 AM CDT Jethro Xavire MD LAB - MICRO GENERAL ORDERABLES [facility] Inf. Diseases Diag. Lab [address] [facility], [address] [place] [address], [facility] [phone] from Last 3 Months or Most Recently Relevant to Health Maintenance Advance Directives For more information, please contact: [phone] * Full Code (Latest Code Status on File) Date Activated Date Inactivated Comments 03/23/2014 1:53 AM 03/23/2014 4:36 PM Care Teams Mold Making Plastics Sheets Supervisor Relationship Specialty Start Date End Date Clinic, [facility] [address] [place] [address] PCP - General 03/22/14 Pily Spring MD [address] [facility] [address] [place] [address] Assigned OBGYN Provider 12/25/22
== END 2023-06-10 11:46 | disposition home or self-care (01) ==
PROVIDERS: PCP Nurse Practitioner Family; Visit Provider Nurse Practitioner Family
DX: D64.9 Anemia, unspecified (principal); R41.89 Other symptoms and signs involving cognitive functions and awareness; Z13.29 Encounter for screening for other suspected endocrine disorder; Z13.21 Encounter for screening for nutritional disorder; Z13.1 Encounter for screening for diabetes mellitus
CPT/HCPCS: 82607; 82947; 84443; 85025

== ENCOUNTER 2024-08-07 11:48 | Outpatient (CLI) | payer BC, SELFPAY | END 2024-08-07 11:49 | disposition home or self-care (01) | LOC: NFLDREF 11:53 | PROVIDERS: PCP Nurse Practitioner Family; Visit Provider Internal Medicine | DX: L65.9 Nonscarring hair loss, unspecified (principal); R53.83 Other fatigue | CPT/HCPCS: 84443 ==

== ENCOUNTER 2024-08-08 15:50 | Outpatient (CLI) | payer BC, SELFPAY ==
--- NOTE | 2024-08-08 16:00 | CRLHL7_ITS ---
For Patients: As a result of the Century Cures Act, medical imaging exams and procedure reports are released immediately into your electronic medical record. You may view this report before your referring provider. If you have questions, please contact your health care provider. INDICATION: Fatigue, enlargement COMPARISON: none TECHNIQUE: Tavarez scale and color Doppler images were acquired of the thyroid gland. FINDINGS: The thyroid echotexture is diffusely heterogeneous. The right lobe measures 5.3 x 1.2 x 2.2 cm and the left lobe measures 5.2 x 1.4 x 2.1 cm in size. There are no suspicious masses or nodules. Isthmus measures 4 millimeters. The color Doppler images demonstrate mildly increased vascularity. There is no evidence of cervical lymphadenopathy or parathyroid mass. IMPRESSION: Diffusely heterogeneous and mildly hypervascular thyroid gland. No suspicious nodule. Dictated by Ced Arevalo MD @ 08/08/2024 5:21:22 PM (Electronically Signed)
== END 2024-08-08 15:51 | disposition home or self-care (01) ==
LOC: US 15:51
PROVIDERS: PCP Nurse Practitioner Family; Visit Provider Internal Medicine
DX: R53.83 Other fatigue (principal); R13.10 Dysphagia, unspecified; L65.9 Nonscarring hair loss, unspecified
CPT/HCPCS: 76536

== ENCOUNTER 2024-08-10 15:47 | Outpatient (CLI) | payer BC, SELFPAY ==
--- NOTE | 2024-08-10 16:00 | CRLHL7_ITS ---
For Patients: As a result of the Century Cures Act, medical imaging exams and procedure reports are released immediately into your electronic medical record. You may view this report before your referring provider. If you have questions, please contact your health care provider. INDICATION: Abnormal / heavy bleeding COMPARISON: None. TECHNIQUE: 2D finnegan-scale and color Doppler images were acquired of the pelvis using a transabdominal and transvaginal approach. Transvaginal imaging performed to better visualize the endometrial stripe and ovaries. FINDINGS: Sonographic images demonstrate a normal size and smooth outer contour of the uterus. Uterus measures 8.7 cm in length by 4.4 cm in AP diameter by 5.6 cm in transverse dimension. The myometrium has a normal uniform echotexture. The endometrial lining measures 12.8 mm in composite thickness. The right ovary measures 4.0 x 3.0 x 3.7 cm in size and the left ovary measures 3.4 x 1.9 x 2.9 cm. The ovaries demonstrate normal arterial and venous blood flow on color Doppler analysis. There are no suspicious fluid collections within the cul-de-sac. Collapsing right ovarian cyst is present which measures 2.4 x 1.8 x 2.3 cm. IMPRESSION: Endometrial thickness 12.8 millimeters. No endometrial fluid. No uterine fibroid. Endometrium is somewhat heterogeneous. Dictated by Ced Arevalo MD @ 08/12/2024 4:59:19 PM (Electronically Signed)
== END 2024-08-10 15:48 | disposition home or self-care (01) ==
PROVIDERS: PCP Internal Medicine; Visit Provider Internal Medicine
DX: N93.9 Abnormal uterine and vaginal bleeding, unspecified (principal); R93.89 Abnormal findings on diagnostic imaging of other specified body structures
CPT/HCPCS: 76830; 76856

== ENCOUNTER 2024-08-27 14:30 | Outpatient (RCR) | payer BC, SELFPAY ==
[2024-08-17 09:45] VITALS: BP 144/80; PULSE 66; RESP 16; TEMP 36.4; O2SAT 97
[2024-08-17] MEDS: IRON SUCROSE COMPLEX 200 MG in 0.9 % SODIUM CHLORIDE 100 ml 100 ML 440 MG IVPB (10:10)
[2024-08-17 10:30] VITALS: BP 123/74; PULSE 63; RESP 16; O2SAT 94
[2024-08-20 14:42] VITALS: BP 146/90; PULSE 63; RESP 17; TEMP 36.7; O2SAT 100
[2024-08-20] MEDS: IRON SUCROSE COMPLEX 200 MG in 0.9 % SODIUM CHLORIDE 100 ml 100 ML 440 MG IVPB (15:11)
[2024-08-20 15:30] VITALS: BP 131/74; PULSE 63; RESP 16; O2SAT 99
[2024-08-22 14:34] VITALS: BP 135/85; PULSE 73; RESP 17; TEMP 36.4; O2SAT 100
[2024-08-22] MEDS: IRON SUCROSE COMPLEX 200 MG in 0.9 % SODIUM CHLORIDE 100 ml 100 ML 440 MG IVPB (15:01)
[2024-08-24] MEDS: IRON SUCROSE COMPLEX 200 MG in 0.9 % SODIUM CHLORIDE 100 ml 100 ML 440 MG IVPB (14:48)
[2024-08-24 15:06] VITALS: BP 125/70; PULSE 60; RESP 16; TEMP 36.9; O2SAT 94
[2024-08-24 15:41] VITALS: BP 117/61; PULSE 67; RESP 16; O2SAT 99
[2024-08-27] MEDS: IRON SUCROSE COMPLEX 200 MG in 0.9 % SODIUM CHLORIDE 100 ml 100 ML 440 MG IVPB (15:00)
[2024-08-27 15:22] VITALS: BP 130/79; PULSE 77; RESP 16; TEMP 36.8; O2SAT 97
[2024-08-27 15:55] VITALS: BP 128/71; PULSE 60; RESP 16; TEMP 36.7; O2SAT 100
== END 2025-02-13 23:59 | disposition home or self-care (01) ==
LOC: CCIC 14:30
PROVIDERS: PCP Internal Medicine; Referring Provider Internal Medicine; Visit Provider Clinical Nurse Specialist
DX: D50.9 Iron deficiency anemia, unspecified (principal)
CPT/HCPCS: 96365; 96374; J1756

== ENCOUNTER 2024-08-30 13:17 | Outpatient (CLI) | payer BC, SELFPAY | END 2024-08-30 13:18 | disposition home or self-care (01) | LOC: NFLDREF 13:18 | PROVIDERS: PCP Internal Medicine; Visit Provider Obstetrics & Gynecology | DX: N92.0 Excessive and frequent menstruation with regular cycle (principal) | CPT/HCPCS: 84146 ==

== ENCOUNTER 2024-11-09 08:00 | Outpatient (CLI) | payer BC, SELFPAY | END 2024-11-09 08:01 | disposition home or self-care (01) | PROVIDERS: PCP Internal Medicine; Visit Provider Obstetrics & Gynecology | DX: N92.0 Excessive and frequent menstruation with regular cycle (principal); Z13.0 Encounter for screening for diseases of the blood and blood-forming organs and certain disorders involving the immune mechanism | CPT/HCPCS: 85240; 85245; 85246; 85384; 85610 ==